=== PATIENT | female | born 1970 | race Caucasian/White ===

== ENCOUNTER 2016-11-04 18:58 | Emergency (ER) | payer BC ==
[~2016-11-04] VITALS: Ht 157.5 cm; Wt 59.1 kg
[2016-11-04 19:05] VITALS: TEMP 36.9; Ht 157.5 cm; Wt 59.1 kg
[2016-11-04] MEDS ORDERED: ACETAMINOPHEN 500 MG TAB PO STA (19:53)
[2016-11-04] MEDS ORDERED: HYDROmorphone INJ 1 MG/ML SYR IV STA (19:53)
[2016-11-04] MEDS ORDERED: SODIUM CHLORIDE 0.9% 1000ML 1,000 ML IV STA (19:53)
[2016-11-04] MEDS ORDERED: KETOROLAC TROMETHAMINE 30 MG/ML VIAL IV STA (19:53)
--- NOTE | 2016-11-04 19:58 | EMERGENCY ROOM VISIT NOTE ---
History Report prepared by Margi: Chang Leonard Under the Supervision of: Dr. Kasandra Muniz M.D. 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 She states she was walking up a hill after work when she began to experience pain in her left flank. She describes her pain as feeling like a cramp. She notes her pain radiates to her back and neck. She reports that deep breaths and bending worsens her symptoms. The patient denies any family history of clots in the lungs or legs. 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 A total of 10 systems reviewed and were otherwise negative. Past Medical & Surgical Medical Problems: (1) No Known Active Medical Problems Family History No pertinent family history stated. Social History Smoking Status: Never Smoker Marital Status: Occupation Status: employed Current/Historical Medications Scheduled Aspirin Effervescent ([place]), 1 TAB PO PRN UD Scheduled PRN Ibuprofen (Advil), 400 MG PO BID PRN for Pain Allergies Coded Allergies: Cephalosporins (Verified Allergy, Unknown, 11/24/09) Penicillins (Verified Allergy, Unknown, HIVES, 11/24/09) Physical Exam Vital Signs Date Time Temp Pulse Resp B/P Pulse Ox O2 Delivery O2 Flow Rate FiO2 11/04/16 22:55 77 18 108/67 98 Room Air 11/04/16 21:38 71 18 134/73 100 Room Air 11/04/16 20:36 74 11/04/16 20:26 65 18 119/78 100 Room Air 11/04/16 19:05 36.9 85 16 124/56 99 Room Air Physical Exam CONSTITUTIONAL: Patient is in mild painful distress. HEENT: No icterus, moist mucous membranes NECK: No meningismus, trachea is midline. CARDIOVASCULAR: Regular rate, normal perfusion RESPIRATORY: Unlabored breathing. Clear to auscultation. GASTROINTESTINAL: Moderate left flank tenderness. GENITOURINARY: No flank tenderness MUSCULOSKELETAL: Full range of motion NEUROLOGIC: No acute gross focal deficits. PSYCHIATRIC: Normal affect SKIN: Normal for ethnicity. Medical Decision & Procedures ER Provider Diagnostic Interpretation: X-ray results as stated below per my interpretation and radiologist interpretation. Other radiology results as stated below per my review and radiologist interpretation. CHEST ONE VIEW PORTABLE FINDINGS: The lungs are clear. The heart is normal in size. No pleural effusions. No pneumothorax. Mild S-shaped scoliosis of the thoracolumbar spine. IMPRESSION: No acute process. Electronically signed by: Burke Klein M.D. 11/04/2016 8:53 PM Dictated Date/Time: 11/04/2016 8:51 PM CHEST CTA for PULMONARY ARTERIES FINDINGS: There is a normal caliber thoracic aorta with no evidence for dissection. Motion artifact results in nondiagnostic evaluation of some of the left lower lobe subsegmental pulmonary arteries. Otherwise, there is no evidence for pulmonary embolus. No pleural effusions. No pneumothorax. The liver and spleen are unremarkable. No mediastinal or hilar lymphadenopathy. The central airways are patent. A few linear densities at the lung bases favor subsegmental atelectasis. Small right posterior tracheal diverticulum. This is considered to be a normal variant. A 4 mm nodule within the right upper lobe on image 70. A 3 mm nodule within the right middle lobe on image 46. No focal lung consolidations to suggest pneumonia. IMPRESSION: 1. No evidence for pulmonary embolus with limitations as described above. 2. There are total of 2 subcentimeter indeterminate pulmonary nodules within the right lung with the largest measuring 4 mm. Please refer to the chart below for recommended follow-up. Please refer to below summary of Fleischner criteria recommendations for follow-up of incidental CT nodules (Torres Ibrahim, Guidelines for management of small pulmonary nodules detected on CT scans: A statement from the Fleischner Society, Radiology 237: [id number].) Low Risk Patient: Minimal or no smoking or other known risk factors for malignancy <=4 mm: No follow-up needed. >4-6 mm: Initial follow-up CT at 12 months; if unchanged, no further follow-up. >6-8 mm: Initial follow-up CT at 6-12 months then at 18-24 months if no change. >8 mm: Follow-up CT at \R\3, 9, 24 months, or PET and/or biopsy. High Risk Patient: History of smoking or other known risk factors <=4 mm: Follow-up at 12 months; if unchanged, no further follow-up. >4-6 mm: Initial follow-up CT at 6-12 months then at 18-24 months if no change. >6-8 mm: Initial follow-up CT at 3-6 months then at 9-12 and 24 months if no change. >8 mm: Same as low risk patient. Note: Nodule size measured as average of length and width. Ground glass or partly solid nodules may require longer follow-up to exclude indolent adenocarcinoma. Electronically signed by: Burke Klein M.D. 11/04/2016 10:44 PM Dictated Date/Time: 11/04/2016 10:34 PM ABDOMEN AND PELVIS CT WITHOUT CONTRAST FINDINGS: Mild asymmetric thickening of the left lateral abdominal wall which is likely due to the patient's position. Suboptimal evaluation for bowel pathology due to the lack of intravenous and oral contrast. Tiny fat-containing umbilical hernia. Normal appendix. Normal bladder. Trace pelvic free fluid. This is likely physiologic. A few colonic diverticula. The unenhanced liver, gallbladder, spleen, pancreas, and adrenal glands are unremarkable. No renal stones or hydronephrosis. No bowel wall thickening or obstruction. The pelvic organs are unremarkable. No suspicious lytic or blastic osseous lesions. IMPRESSION: No renal stones or hydronephrosis. Trace pelvic free fluid which is likely physiologic. Electronically signed by: Burke Klein M.D. 11/04/2016 10:49 PM Dictated Date/Time: 11/04/2016 10:44 PM Laboratory Results 11/04/16 21:03 Red Blood Count 4.99, Mean Corpuscular Volume 81.2, Mean Corpuscular Hemoglobin 27.9, Mean Corpuscular Hemoglobin Concent 34.3, Mean Platelet Volume 11.2, Neutrophils (%) (Auto) 61.1, Lymphocytes (%) (Auto) 24.4, Monocytes (%) (Auto) 8.4, Eosinophils (%) (Auto) 5.2, Basophils (%) (Auto) 0.4, Neutrophils # (Auto) 4.77, Lymphocytes # (Auto) 1.91, Monocytes # (Auto) 0.66, Eosinophils # (Auto) 0.41, Basophils # (Auto) 0.03 11/04/16 21:03 Test 11/04/16 00:00 11/04/16 21:03 Urine Color YELLOW Urine Appearance CLEAR (CLEAR) Urine pH 6.0 (4.5-7.5) Urine Specific [place] 1.005 (1.000-1.030) Urine Protein NEG (NEG) Urine Glucose (UA) NEG (NEG) Urine Ketones NEG (NEG) Urine Occult Blood NEG (NEG) Urine Nitrite NEG (NEG) Urine Bilirubin NEG (NEG) Urine Urobilinogen NEG (NEG) Urine Leukocyte Esterase NEG (NEG) White Blood Count 7.82 K/uL (4.8-10.8) Red Blood Count 4.99 M/uL (4.2-5.4) Hemoglobin 13.9 g/dL (12.0-16.0) Hematocrit 40.5 % (37-47) Mean Corpuscular Volume 81.2 fL (80-100) Mean Corpuscular Hemoglobin 27.9 pg (25-34) Mean Corpuscular Hemoglobin Concent 34.3 g/dl (32-36) Platelet Count 201 K/uL (130-400) Mean Platelet Volume 11.2 fL (7.4-10.4) Neutrophils (%) (Auto) 61.1 % Lymphocytes (%) (Auto) 24.4 % Monocytes (%) (Auto) 8.4 % Eosinophils (%) (Auto) 5.2 % Basophils (%) (Auto) 0.4 % Neutrophils # (Auto) 4.77 K/uL (1.4-6.5) Lymphocytes # (Auto) 1.91 K/uL (1.2-3.4) Monocytes # (Auto) 0.66 K/uL (0.11-0.59) Eosinophils # (Auto) 0.41 K/uL (0-0.5) Basophils # (Auto) 0.03 K/uL (0-0.2) RDW Standard Deviation 38.5 fL (36.4-46.3) RDW Coefficient of Variation 13.0 % (11.5-14.5) Immature Granulocyte % (Auto) 0.5 % Immature Granulocyte # (Auto) 0.04 K/uL (0.00-0.02) Anion Gap 10.0 mmol/L (3-11) Est Creatinine Clear Calc Drug Dose 72.8 ml/min Estimated GFR () 107.2 Estimated GFR (Non- 92.5 BUN/Creatinine Ratio 10.3 (10-20) Calcium Level 9.2 mg/dl (8.5-10.1) Troponin I < 0.015 ng/ml (0-0.045) Labs reviewed by ED physician. Medications Administered Medications (Trade) Dose Ordered Sig/Jovani Route Start Time Stop Time Status Last Admin Dose Admin Acetaminophen 1000 mg 1,000 mg NOW STAT PO 11/04/16 19:53 11/04/16 19:54 DC 11/04/16 20:24 1,000 MG Sodium Chloride (Nss 1000ml) 1,000 ml @ 0 mls/hr Q0M STAT IV 11/04/16 19:53 11/04/16 19:54 DC 11/04/16 20:23 0 MLS/HR ECG Indication: other (left flank pain) Rate (beats per minute): 74 Rhythm: sinus rhythm Findings: no ectopy, other (Normal axis; normal ST segment) ED Course 1944: Past medical records reviewed. The patient was evaluated in room A2. A complete history and physical examination was performed. 1952: Ordered Dilaudid Inj 1 mg IV, Toradol Inj 30 mg IV, NSS 1,000 ml @ 0 mls/ hr Wide Open IV, and Tylenol Tab 1,000 mg PO. 2314: Ordered Oxycodone/Acetaminophen 1 homepack PO. 6: Upon reexamination the patient is hemodynamically stable. I discussed results and treatment plan with the patient. She verbalizes agreement and understanding. The patient is ready for discharge. Medical Decision Differentials include pulmonary embolism, kidney stone, musculoskeletal pain, and pneumothorax. 46-year-old presented to the emergency department for gradual worsening positional pleuritic left flank and rib pain for several hours. Review of systems notable for recent upper respiratory infection and cough over the last few weeks which has gotten progressively better. There is no family history of thromboembolic disease. On exam was a little bit unclear what degree this was chest or possibly abdominal related. Subsequent CTs of the chest and abdomen did not rule out acute pathology and labs were unremarkable. Patient given copy of CT reports on reexamination prior to discharge at 11:00 PM. She is aware to follow-up with her primary doctor regarding the lung nodules on a routine basis. She is given Percocet home pack and advised to, Motrin every 6 hours as needed for pain Impression Primary Impression: Flank pain Scribe Attestation The scribe's documentation has been prepared under my direction and personally reviewed by me in its entirety. I confirm that the note above accurately reflects all work, treatment, procedures, and medical decision making performed by me. Departure Information Dispostion Home / Self-Care Referrals No Doctor, Assigned (PCP) Patient Instructions ED Flank Pain Uncertain Cause, My [facility]
[2016-11-04] MEDS ORDERED: IBUP-1050 PO (19:59)
[2016-11-04] MEDS ORDERED: ASPITAB71 PO (19:59)
[2016-11-04] MEDS ORDERED: OPTIRAY 320 IV PRN (20:15)
[2016-11-04 20:26] LABS: URINE APPEARANCE CLEAR (CLEAR); URINE BILIRUBIN NEG (NEG); URINE COLOR YELLOW; URINE NITRITE NEG (NEG); URINE SPECIFIC GRAVITY 1.005 (1.000-1.030); UROBILINOGEN NEG (NEG); ZZUR CULT IF INDIC CLEAN CATCH NO
[2016-11-04 20:30] LABS: MANUAL MICROSCOPIC REQUIRED? NO; REVIEW REQ? NO
--- NOTE | 2016-11-04 20:55 | DIAGNOSTIC IMAGING REPORT ---
CHEST ONE VIEW PORTABLE HISTORY: left pleuritic flank pain, acute onset, severe COMPARISON: None. FINDINGS: The lungs are clear. The heart is normal in size. No pleural effusions. No pneumothorax. Mild S-shaped scoliosis of the thoracolumbar spine. IMPRESSION: No acute process. Electronically signed by: Burke Klein M.D. 11/04/2016 8:53 PM Dictated Date/Time: 11/04/2016 8:51 PM
[2016-11-04 21:18] LABS: BASO % 0.4 %; BASO ABS # 0.03 K/uL (0-0.2); COMPLETE YES; EOS % 5.2 %; HEMATOCRIT 40.5 % (37-47); IG% 0.5 %; LYMPH % 24.4 %; LYMPH ABS # 1.91 K/uL (1.2-3.4); MEAN CELL VOLUME 81.2 fL (80-100); MEAN CORPUSCULAR HEMOGLOBIN 27.9 pg (25-34); MEAN CORPUSCULAR HGB CONC 34.3 g/dl (32-36); MEAN PLATELET VOLUME 11.2 fL (7.4-10.4); MONO % 8.4 %; NEUT % 61.1 %; PLATELET COUNT 201 K/uL (130-400); RED BLOOD COUNT 4.99 M/uL (4.2-5.4); WHITE BLOOD COUNT 7.82 K/uL (4.8-10.8)
[2016-11-04 21:38] LABS: BLOOD UREA NITROGEN 8 mg/dl (7-18); BUN/CREATININE RATIO 10.3 (10-20); CALCIUM 9.2 mg/dl (8.5-10.1); CARBON DIOXIDE 24 mmol/L (21-32); CHLORIDE 107 mmol/L (98-107); CREATININE 0.78 mg/dl (0.60-1.20); GLUCOSE 80 mg/dl (70-99); POTASSIUM 3.8 mmol/L (3.5-5.1); SODIUM 141 mmol/L (136-145)
--- NOTE | 2016-11-04 22:46 | DIAGNOSTIC IMAGING REPORT ---
CHEST CTA for PULMONARY ARTERIES CT DOSE: 778.12 mGy.cm HISTORY: Left pleuritic chest pain. TECHNIQUE: Multiaxial CT images of the chest were performed following the intravenous administration of contrast to evaluate the pulmonary arteries. Maximal intensity projection images were also obtained. COMPARISON STUDY: Chest 11/04/2016. FINDINGS: There is a normal caliber thoracic aorta with no evidence for dissection. Motion artifact results in nondiagnostic evaluation of some of the left lower lobe subsegmental pulmonary arteries. Otherwise, there is no evidence for pulmonary embolus. No pleural effusions. No pneumothorax. The liver and spleen are unremarkable. No mediastinal or hilar lymphadenopathy. The central airways are patent. A few linear densities at the lung bases favor subsegmental atelectasis. Small right posterior tracheal diverticulum. This is considered to be a normal variant. A 4 mm nodule within the right upper lobe on image 70. A 3 mm nodule within the right middle lobe on image 46. No focal lung consolidations to suggest pneumonia. IMPRESSION: 1. No evidence for pulmonary embolus with limitations as described above. 2. There are total of 2 subcentimeter indeterminate pulmonary nodules within the right lung with the largest measuring 4 mm. Please refer to the chart below for recommended follow-up. Please refer to below summary of Fleischner criteria recommendations for follow-up of incidental CT nodules (Torres Ibrahim, Guidelines for management of small pulmonary nodules detected on CT scans: A statement from the Fleischner Society, Radiology 237: [phone].) Low Risk Patient: Minimal or no smoking or other known risk factors for malignancy <=4 mm: No follow-up needed. >4-6 mm: Initial follow-up CT at 12 months; if unchanged, no further follow-up. >6-8 mm: Initial follow-up CT at 6-12 months then at 18-24 months if no change. >8 mm: Follow-up CT at \R\3, 9, 24 months, or PET and/or biopsy. High Risk Patient: History of smoking or other known risk factors <=4 mm: Follow-up at 12 months; if unchanged, no further follow-up. >4-6 mm: Initial follow-up CT at 6-12 months then at 18-24 months if no change. >6-8 mm: Initial follow-up CT at 3-6 months then at 9-12 and 24 months if no change. >8 mm: Same as low risk patient. Note: Nodule size measured as average of length and width. Ground glass or partly solid nodules may require longer follow-up to exclude indolent adenocarcinoma. Electronically signed by: Burke Klein M.D. 11/04/2016 10:44 PM Dictated Date/Time: 11/04/2016 10:34 PM
--- NOTE | 2016-11-04 22:51 | DIAGNOSTIC IMAGING REPORT ---
ABDOMEN AND PELVIS CT WITHOUT CONTRAST CT DOSE: HISTORY: Left-sided flank pain. TECHNIQUE: Multiaxial CT images of the abdomen and pelvis were performed without the use of intravenous and oral contrast according to the standard department stone protocol. COMPARISON STUDY: None. FINDINGS: Mild asymmetric thickening of the left lateral abdominal wall which is likely due to the patient's position. Suboptimal evaluation for bowel pathology due to the lack of intravenous and oral contrast. Tiny fat-containing umbilical hernia. Normal appendix. Normal bladder. Trace pelvic free fluid. This is likely physiologic. A few colonic diverticula. The unenhanced liver, gallbladder, spleen, pancreas, and adrenal glands are unremarkable. No renal stones or hydronephrosis. No bowel wall thickening or obstruction. The pelvic organs are unremarkable. No suspicious lytic or blastic osseous lesions. IMPRESSION: No renal stones or hydronephrosis. Trace pelvic free fluid which is likely physiologic. Electronically signed by: Burke Klein M.D. 11/04/2016 10:49 PM Dictated Date/Time: 11/04/2016 10:44 PM
[2016-11-04 22:55] VITALS: BP 108/67; PULSE 77; O2SAT 98
[2016-11-04] MEDS ORDERED: PERCOCET HOME PACK PO ONE (23:15)
== END 2016-11-04 23:28 | disposition home or self-care (01) ==
LOC: C.EDB 19:00 → C.EDA 23:28
DX: R10.9 Unspecified abdominal pain (principal); R91.8 Other nonspecific abnormal finding of lung field

== ENCOUNTER → 2017-03-06 | Outpatient (CLI) | payer BC ==
[~2017-03-06] MED LIST: ASPITAB71 PO; IBUP-1050 PO
== END ==
LOC: C.PAPS 09:01
PROVIDERS: ATTEND Obstetrics & Gynecology
DX: Z01.419 Encounter for gynecological examination (general) (routine) without abnormal findings (principal)